=== PATIENT | female | born 1990 | race Two or more races ===

== ENCOUNTER 2019-08-17 19:53 | Emergency (ER) | payer MEDICAID ==
[2019-08-17 20:53] LABS: Urine WBC None Seen /hpf (0 - 5)
[2019-08-17 21:06] LABS: Urine Pregnacy Test Negative (Negative)
[2019-08-17 21:18] LABS: Urine Bacteria NONE SEEN /hpf (None Seen); Urine Blood 1+ /uL (Negative); Urine Specific Gravity 1.002 (1.001-1.035)
[2019-08-17 21:21] LABS: Alcohol, Urine < 3.0 mg/dL (0-5); Amphetamine Screen, Urine NEGATIVE (NEGATIVE); Barbiturate Scree,Urine NEGATIVE (NEGATIVE); Benzodiazephine Screen, Urine NEGATIVE (NEGATIVE); Cannabinoid Screen, Urine NEGATIVE (NEGATIVE); Cocaine Screen, Urine NEGATIVE (NEGATIVE); Opiate Scree,Urine NEGATIVE (NEGATIVE); Phencyclidine Screen, Urine NEGATIVE (NEGATIVE)
== END 2019-08-18 01:17 | disposition left against medical advice (07) ==
LOC: ER 19:53
DX: M79.605 Pain in left leg (principal); Z53.21 Procedure and treatment not carried out due to patient leaving prior to being seen by health care provider
CPT/HCPCS: 80307; 81001; 81025